=== PATIENT | female | born 2000 | race Hispanic/Latino ===

== ENCOUNTER 2022-04-03 15:58 | Emergency (ER) | payer MEDICAID ==
[~2022-04-03] VITALS: Ht 152.4 cm; Wt 82.6 kg
[2022-04-03 16:28] LABS: APPEARANCE,URINE CLEAR (CLEAR); BILIRUBIN,URINE NEGATIVE (NEGATIVE); COLOR,URINE LIGHT-YELLOW (YELLOW); GLUCOSE, URINE (UA) NEGATIVE (NEGATIVE); KETONES,URINE 5 mg/dL (NEGATIVE); LEUKOCYTE ESTERASE ,URINE NEGATIVE Leu/uL (NEGATIVE); NITRATE,URINE NEGATIVE (NEGATIVE); OCCULT BLOOD,URINE MODERATE (NEGATIVE); PROTEIN,URINE 10 mg/dL (NEGATIVE); UROBILINOGEN,URINE 0.2 mg/dL (0.2-1.0)
[2022-04-03 16:32] LABS: BASOPHILS % (AUTO) 0.2 % (0.0-5.0); EOSINOPHILS % (AUTO) 1.1 % (0.0-8.0); MEAN CORPUSCULAR HEMOGLOBIN 30.3 pg (27.0-33.0); MEAN CORPUSCULAR HGB CONC 34.2 g/dL (32.0-36.0); MEAN CORPUSCULAR VOLUME 88.7 fL (80-100); MONOCYTES % (AUTO) 8.9 % (3.0-13.0); NEUTROPHILS % (AUTO) 72.4 % (40.0-77.0); PLATELET COUNT (AUTO) 313 K/uL (130-400); RED BLOOD CELL COUNT(AUTO) 4.06 MIL/uL (4.00-5.50); RED CELL DISTRIBUTION WIDTH 13.2 % (11.0-15.5); WHITE BLOOD COUNT (AUTO) 12.2 K/uL (4.8-10.8)
[2022-04-03 16:42] LABS: CREATININE 0.7 mg/dL (0.5-1.5); POTASSIUM 3.7 mmol/L (3.5-5.1)
[2022-04-03 16:43] LABS: BACTERIA,URINE RARE /HPF (None Seen); MUCUS,URINE FEW LPF (None Seen); SQUAMOUS EPITHELIAL CELL,UR RARE /HPF (0-2)
[2022-04-03 16:44] LABS: HCG,QUALITATIVE URINE POSITIVE (NEGATIVE)
[2022-04-03 16:47] LABS: ALBUMIN 3.4 g/dL (3.5-5.0); TOTAL PROTEIN, SERUM 7.2 g/dL (6.0-8.3)
[2022-04-03] MEDS ORDERED: CEFTRIAXONE 1G VIAL ONE (16:57)
[2022-04-03] MEDS ORDERED: CEFTRIAXONE 1G VIAL IM ONE (17:00)
[2022-04-03 17:51] VITALS: BP 110/59
[2022-04-03] MEDS ORDERED: CEPH500B PO (18:34)
== END 2022-04-03 18:47 | disposition home or self-care (01) ==
LOC: EDH 15:58
DX: O23.41 Unspecified infection of urinary tract in pregnancy, first trimester (principal); N39.0 Urinary tract infection, site not specified; O46.91 Antepartum hemorrhage, unspecified, first trimester; Z3A.13 13 weeks gestation of pregnancy
CPT/HCPCS: 99284; 76805; 80053; 84702; 85025; 86900; 86901; 81001; 81025; 36415; 96372; J0696

== ENCOUNTER 2022-11-14 00:26 | Emergency (ER) | payer MEDICAID ==
[~2022-11-14] VITALS: Ht 154.9 cm; Wt 76.2 kg
[~2022-11-14 00:26] MED LIST: PREN1COM PO
[2022-11-14 00:28] VITALS: BP 133/87
== END 2022-11-14 02:37 | disposition left against medical advice (07) ==
LOC: EDH 00:26
DX: R10.9 Unspecified abdominal pain (principal); Z53.21 Procedure and treatment not carried out due to patient leaving prior to being seen by health care provider
CPT/HCPCS: 99281